=== PATIENT | female | born 1965 | race Caucasian/White ===

== ENCOUNTER 2023-02-07 16:56 | Inpatient (IN) | payer SELFPAY ==
[~2023-02-07] VITALS: Ht 170.2 cm; Wt 112.4 kg
[2023-02-07] VITALS (79 sets, daily range): BP systolic 129–227; BP diastolic 71–152
[~2023-02-07 16:56] MED LIST: ALBUTEROL0.5 % IN; ALBUTEROL2.5 MG/3 M IN; AMOXIL500 MG OR; BACTRIM DS1 TAB PO; BAYER ASA325 MG OR; CEPHALEXIN500 MG OR; CIPRO500 MG OR; CIPROFLOXACN500 MG PO; DENIES CURRENT MEDS; FLEXERIL OR; FLEXERIL PO; KEFLEX500 MG PO; LISINOP/HCTZ1 TA1 OR; LORTAB 1010 MG PO; LORTAB 5 OR; LORTAB 5/3255 MG PO; LORTAB 7.57.5 MG PO; LORTAB5 PO; MEGACE40 MG OR; NAPROSYN500 MG OR; PERCOCET 5/325M1 TAB OR; PERCOCET1 TA2 PO; PROVENTIL INH17 GM IN; ULTRAM50 M1 PO; ULTRAM50 MG OR; [UNRECOGNIZED DRUG - REMARK]
--- NOTE | 2023-02-07 17:00 | NUR ---
PT TO ROOM VIA WC. DAUGHTER AT BEDSIDE. COLD SYMPTOMS FOR ONE WEEK, FAMILY IN HOME SICK. SOB WORSE IN THE LAST 2 DAYS.
--- NOTE | 2023-02-07 17:30 | NUR ---
PT HAS 4TH I/V SITE (L) HAND, 22G, SITE FLUSHES AND HAS (+) BLOOD RETURN.
--- NOTE | 2023-02-07 17:30 | NUR ---
PROVIDER AT BEDSIDE, NITRO DRIP ORDERED
[2023-02-07 17:45] LABS: BASO% 0.6 % (0-3); HEMOGLOBIN 15.7 g/dl (12.0-16.0); IMMATURE GRANULOCYTES 0.2 % (0.0-5.0); LYMPH% 17.4 % (15-41); MEAN CORPUSCULAR HGB 30.9 pG CALC (26.0-32.0); MEAN CORPUSCULAR HGB CONC 31.6 g/dL CAL (32.0-36.0); MONO% 5.5 % (2-13); NEUT# 7.97 thou/uL (2.00-7.15); NEUT% 74.3 % (42-76); RED BLOOD COUNT 5.08 mill/uL (4.20-5.60); RED CELL DISTRI WIDTH 15.1 % (11.5-15.5)
[2023-02-07 17:46] LABS: HEMATOCRIT 49.7 % (37.0-47.0); MEAN CELL VOLUME 97.8 fL CALC (80.0-100.0)
[2023-02-07 17:57] LABS: ALKALINE PHOSPHATASE 84 u/l (38-126); BUN 19 mg/dL (7-17); BUN/CREATININE RATIO 18 (12-20 (CALC)); CHLORIDE 98 mmol/l (95-108); GFR FOR AFR.AMER. > 60 ML/MIN (>=60 (CALC)); GFR OTHER RACES 58 ML/MIN (>=60 (CALC)); POTASSIUM 4.4 mmol/l (3.5-5.1); SGOT/AST 53 u/l (14-36); SODIUM 140 mmol/l (137-146)
[2023-02-07 18:00] LABS: ANION GAP 11 (6-22 (CALC)); BILIRUBIN, TOTAL 1.4 mg/dL (0.02-1.3); CARBON DIOXIDE 35 mmol/l (22-30)
--- NOTE | 2023-02-07 18:19 | NUR ---
PT IN BED, PT REPORTING MILD HEADACHE 2/10, PT REPORTS THAT HER CHEST PAIN IS GONE
--- NOTE | 2023-02-07 18:27 | NUR ---
PROVIDER AT BEDSIDE MADE AWARE THAT PT IS COMPLAINING OF MILD HEADACHE
--- NOTE | 2023-02-07 18:29 | NUR ---
PT VOIDED 350 ML
--- NOTE | 2023-02-07 18:38 | NUR ---
PT MED REC COMPLETED, PER PT SHE TAKES NO MEDICATIONS AT HOME
--- NOTE | 2023-02-07 18:45 | NUR ---
PT VOIDED 450ML
--- NOTE | 2023-02-07 18:57 | NUR ---
MD REASSESSED PT, PT DENIES ANY NEEDS AT THIS TIME
--- NOTE | 2023-02-07 19:02 | NUR ---
CALLED ICU GAVE REPORT TO CERTIFIED BENCH JEWELER TECHNICIAN
--- NOTE | 2023-02-07 19:10 | NUR ---
RECIEVED REPORT FROM LEO DEUTSCH. PATIENT ON BIPAP, O2 AT 92%, RR 30, REPORT CALLED TO LINE PATROLMAN BY LEO IGLESIAS. PATIENT UPDATED ON CONTINUOUS PLAN OF CARE, PATIENT VOICES SLIGHT RELIEF, VOICES NO FURTHER QUESTIONS OR CONCERNS, WILL CONTINUE TO MONITOR, NITRO DRIP RUNNING AT 125MCG/MIN, B/P 152/90, HR 83.
--- NOTE | 2023-02-07 20:05 | NUR ---
PATIENT READIED FOR TRANSPORT TO FLOOR, ON MONITOR AND BIPAP WITH RESPIRATORY ASSIST.
--- NOTE | 2023-02-07 20:10 | NUR ---
PATIENT ARRIVED TO UNIT VIA STRETCHER. SHE WAS ACCOMPANIED BY 2 ER NURSES AND RESPIRATORY THERAPIST. PATIENT IS NOTED ON BIPAP AND NITRO DRIP RUNNING AT [facility] [place]. PATIENT TRANSFERRED HERSELF TO BED WITH STANDBY ASSIST. ASSESSMENT COMPLETED. SHE IS ALERT AND ORIENTED X3. LUNGS COARSE WITH WHEEZES THROUGHOUT. BOWEL SOUNDS ACTIVE IN ALL FOUR QUADS. NO EDEMA NOTED. SKIN INTACT. SHE HAD A DOSE OF LASIX IN ER, CLEAR YELLOW URINE NOTED IN PUREWICK CANISTER. SHE IS SOB WITH EXERTION. NO ACUTE DISTRESS NOTED AT THIS TIME. BED LOCKED, IN LOW POSITION. CALL LIGHT WITHIN REACH. WILL CONTINUE TO MONITOR.
--- NOTE | 2023-02-07 21:26 | NUR ---
SPOKE WITH DR. CHARLTON. WHOM STATED HE WILL BE PUTTING IN ORDERS. HE WANTS FOR PATIENT TO REMAIN ON NITRO DRIP. AWAITING MD ORDERS AT THIS TIME.
--- NOTE | 2023-02-07 22:00 | NUR ---
PATIENT NOTED RESTING COMFORTABBLY ON BIPAP. SHE STATED SHE IS READY TO GET OFF BIPAP, BECAUSE THE MASK IS UNCOMFORTABLE. SHE WAS EDUCATED ON THE IMPORTANCE OF WEARING MASK AT THIS TIME. NITRO TITRATED DOWN NEEDED (SEE TITRATIONS). BED LOCKED IN LOW POSITION. WILL CONTINUE TO MONITOR.
[2023-02-08] VITALS (197 sets, daily range): BP systolic 112–190; BP diastolic 69–115
--- NOTE | 2023-02-08 | NUR ---
PATIENT SLEEPING ON BIPAP. NO ACUTE DISTRESS NOTED. CALL LIGHT WITHIN REACH. WILL CONTINUE TO MONITOR.
--- NOTE | 2023-02-08 02:00 | NUR ---
PATIENT RESTING COMFORTABLY ON BIPIP. NO ACUTE DISTRESS NOTED. BED LOCKED, IN LOW POSITION, CALL LIGHT WITHIN REACH.
--- NOTE | 2023-02-08 04:00 | NUR ---
PATIENT SLEEPING ON BIPAP. NO ACUTE DISTRESS NOTED. BED LOCKED, IN LOW POSITION, CALL LIGHT WITHIN REACH.
--- NOTE | 2023-02-08 06:00 | NUR ---
PATIENT SITTING UP IN BED WITH HOB ELEVATED. NO ACUTE DISTRESS NOTED. SHE IS ON O2 @ 5L AT THIS TIME.
[2023-02-08 06:04] LABS: HEMATOCRIT 48.3 % (37.0-47.0); HEMOGLOBIN 15.6 g/dl (12.0-16.0); MEAN CELL VOLUME 97.4 fL CALC (80.0-100.0); MEAN CORPUSCULAR HGB 31.5 pG CALC (26.0-32.0); MEAN CORPUSCULAR HGB CONC 32.3 g/dL CAL (32.0-36.0); RED BLOOD COUNT 4.96 mill/uL (4.20-5.60); RED CELL DISTRI WIDTH 14.8 % (11.5-15.5)
[2023-02-08 06:17] LABS: ALBUMIN 3.8 g/dL (3.2-5.0); ALKALINE PHOSPHATASE 76 u/l (38-126); ANION GAP 11 (6-22 (CALC)); BILIRUBIN, TOTAL 1.4 mg/dL (0.02-1.3); BUN 20 mg/dL (7-17); BUN/CREATININE RATIO 19 (12-20 (CALC)); CALCULATED LDLCHOLESTEROL 113 mg/dL (62-129 (CALC)); CARBON DIOXIDE 37 mmol/l (22-30); CHLORIDE 95 mmol/l (95-108); CREATININE 1.1 mg/dL (0.5-1.0); GFR FOR AFR.AMER. > 60 ML/MIN (>=60 (CALC)); GFR OTHER RACES 52 ML/MIN (>=60 (CALC)); HDL CHOLESTEROL 32 mg/dL (39.0-59.0); POTASSIUM 4.5 mmol/l (3.5-5.1); SGOT/AST 45 u/l (14-36); SODIUM 139 mmol/l (137-146); TOTAL CHOLESTEROL 160 mg/dl (0-199); TOTAL PROTEIN 7.1 g/dL (6.3-8.2); TOTAL TRIGLYCERIDES 76 mg/dl (0-149); VLDL CHOLESTROL 15 mg/dl (2-49 (CALC))
--- NOTE | 2023-02-08 07:00 | NUR ---
BEDSIDE REPORT RECEIVED FROM LEO PORRAS. PT RESTING IN BED WITH EYES CLOSED. ALL SAFETY MEASURES IN PLACE. PT REFUSING BIPAP UNTIL SHE EATS. PT EDUCATED ON NECESSITY OF OXYGENATION AND AGREED TO WEAR BIPAP UNTIL HER BREAKFAST ARRIVES. WILL CONTINUE TO MONITOR O2 SATURATION. NITRO DRIP AT 20 - BP CONTROLLED AT CURRENT RATE.
--- NOTE | 2023-02-08 10:21 | NUR ---
TITRATED NITRO BACK UP TO 20 FROM 10 MCG/HR. BP MAINTAINING 166/104.
--- NOTE | 2023-02-08 11:55 | NUR ---
NITRO GTT STOPPED AFTER GIVING PO BP MEDS PER MD ORDER. WILL RE-ASSESS IN 20 MINUTES.
--- NOTE | 2023-02-08 12:48 | NUR ---
PT FEELING TIRED AND O2 SAT DROPPING MORE OFTEN SO WE PLACED HER BACK ON THE BIPAP. PT AGREEABLE.
--- NOTE | 2023-02-08 20:00 | NUR ---
PATIENT IN BED WITH HOB ELEVATED. NO ACUTE DISTRESS NOTED. SHE IS A/OX3. VSS. SHE IS ON O2 @ 5L NC. BREATHING NOTED EVEN AND UNLABORED. LUNGS COARSE W/ WHEEZES THROUGHOUT. BOWEL SOUNDS ACTIVE. SKIN INTACT. NO EDEMA NOTED. STRONG PEDAL AND RADIAL PULSES NOTED. SHE DENIES ANY PAIN OR DISCOMFORT. BED LOCKED, IN LOW POSITION. CALL LIGHT WITHIN REACH.
--- NOTE | 2023-02-08 22:00 | NUR ---
PATIENT SLEEPING, SHE IS ON O2 VIA NC @ 5L. HER SAT NOTED IN THE MID TO LOW 90S. NO NEED FOR BIPAP NOTED AT THIS TIME. SHE DENIES ANY PAIN OR DISCOMFORT. BED LOCKED, IN LOW POSITION, CALL LIGHT WITHIN REACH.
[2023-02-09] VITALS (43 sets, daily range): BP systolic 107–165; BP diastolic 62–115
--- NOTE | 2023-02-09 | NUR ---
PATIENT SLEEPING COMFORTABLY. SHE IS STILL ON O2 VIA NC @ 5L. HER SAT IS REMAINING IN THE MID TO LOW 90S. NO ACUTE DISTRESS NOTED. WILL CONTINUE TO MONITOR.
--- NOTE | 2023-02-09 02:00 | NUR ---
PATIENT RESTING COMFORTABLY ON OXYGEN. NO ACUTE DISTRESS NOTED. WILL CONTINUE TO MONITOR.
--- NOTE | 2023-02-09 04:00 | NUR ---
PATIENT SLEEPING COMFORTABLY WITH NO ACUTE DISTRESS NOTED. SHE IS STILL ON OXYGEN. WILL CONTINUE TO MONITOR.
[2023-02-09 06:25] LABS: ALBUMIN 3.7 g/dL (3.2-5.0); CREATININE 1.3 mg/dL (0.5-1.0); POTASSIUM 4.4 mmol/l (3.5-5.1)
[2023-02-09 06:27] LABS: BILIRUBIN, TOTAL 0.8 mg/dL (0.02-1.3)
--- NOTE | 2023-02-09 06:42 | NUR ---
PATIENT SLEEPING WITH NO ACUTE DISTRESS NOTED. SHE HAS BEEN OFF BIPAP ALL NIGHT DOING WELL WITH O2 VIA NC. SHE DOES DESAT WHEN O2 IS NOT ON PROPERLY. BED LOCKED, IN LOW POSITION, CALL LIGHT WITHIN REACH.
--- NOTE | 2023-02-09 07:15 | NUR ---
pt resting in bed with eyes closed; no apparent distress noted; pt easy to arouse; assessment completed at this time; pt alert and oriented; denies pain; no n/v noted; resp even and unlabored; lungs coarse with wheezing throughout; skin color wnl; o2 per nc at 5L; screw down dry cough noted; hr reg; strong pulses; no edema noted; sr on monitor; abd soft with bs present; no bm noted per singer songwriter; purewick intact with clear yellow urine; brief noted as well; #20 to lac, rac; #22 to lh; all sites saline locked; no redness or edema noted; plan of care explained; pt with complaints of being in bed, recliner offered but refused; pt voices concerns of wanting to leave; call light within reach; will continue to monitor
--- NOTE | 2023-02-09 08:15 | NUR ---
awake in bed; offers no complaints; o2 per nc; call light within reach; will continue to monitor
--- NOTE | 2023-02-09 08:40 | NUR ---
0840- pt noted on 5L NC; converted to room air; 0845-o2 sat 85-86% within 5 minutes; pt placed back on o2 at 3L; o2 sat current 92%; will continue to monitor
--- NOTE | 2023-02-09 10:17 | NUR ---
awake in recliner; am care provided; Dr Crespo at bedside to assess pt and discuss plan of care; will continue to monitor
--- NOTE | 2023-02-09 12:10 | NUR ---
awake in recliner eating lunch; no apparent distress noted; pt offers no complaints; iv intact; sr on monitor; o2 per nc at 3L; call light within reach; will continue to monitor
--- NOTE | 2023-02-09 12:10 | NUR ---
o2 sat 84% on ra; o2 reapplied
--- NOTE | 2023-02-09 13:53 | NUR ---
Dr Crespo called per ad writer in regards to 1600 lasix order; ad writer informed MD of dosages already given today; order to reschedule for 1899. IVF discontinued at this time
--- NOTE | 2023-02-09 14:32 | NUR ---
awake in bed; no apparent distress noted; pt offers no complaints; iv intact and patent; #20 removed from rac per pt request; sr on monitor; o2 per nc; call light within reach; will continue to monitor
--- NOTE | 2023-02-09 16:00 | NUR ---
awake in bed; o2 per nc; iv intact; sr on monitor; daughter at bedside; will continue to monitor
--- NOTE | 2023-02-09 16:38 | NUR ---
o2 sat 88%; o2 titrated up to 4L nc; will continue to monitor
--- NOTE | 2023-02-09 18:12 | NUR ---
pt awake in bed; offers no complaints; no apparent distress noted; iv intact; sr on monitor; call light within reach
--- NOTE | 2023-02-09 19:00 | NUR ---
hand off report received
--- NOTE | 2023-02-09 20:00 | NUR ---
PATIENT RESTING WITH EYES CLOSED, RESPIRATIONS EVEN AND UNLABORED ON O2@4L BY NC, NO C/O PAIN OR DISCOMFORT, NO S/S OF DISTRESSS NOTED.
--- NOTE | 2023-02-09 22:00 | NUR ---
PATIENT RESTING WITH EYES CLOSED, RESPIRATIONS EVEN AND UNLABORED ON O2@4L BY NC, NO C/O PAIN OR DISCOMFORT, NO S/S OF DISTRESS NOTED.
[2023-02-10] VITALS (16 sets, daily range): BP systolic 120–165; BP diastolic 63–110
--- NOTE | 2023-02-10 00:09 | NUR ---
PATIENT RESTING QUIETLY WITH EYES CLOSED, LIGHTS OFF FOR COMFORT, RESPIRATIONS EVEN AND UNLABORED ON O2@4L BY NC, NO C/O PAIN OR DISCOMFORT, NO S/S OF DISTRESS NOTED.
--- NOTE | 2023-02-10 02:00 | NUR ---
patient resting with eyes closed all vitals wnl
--- NOTE | 2023-02-10 04:00 | NUR ---
REQUESTED SEVERAL TIMES FOR PATIENT TO PROVIDE URINE SAMPLE, PATIENT AMBULATES TO THE BATHROOM INDEPENDENTLY, NO C/O PAIN OR DISCOMFORT, NO S/S OF DISTRES SNOTED, RESPIRATIONS EVEN AND UNLABORED ON O2@4L BY NC.
[2023-02-10 07:16] LABS: ALBUMIN 3.6 g/dL (3.2-5.0); ALKALINE PHOSPHATASE 81 u/l (38-126); ANION GAP 12 (6-22 (CALC)); BILIRUBIN, TOTAL 0.6 mg/dL (0.02-1.3); BUN 38 mg/dL (7-17); BUN/CREATININE RATIO 34 (12-20 (CALC)); CARBON DIOXIDE 38 mmol/l (22-30); CHLORIDE 92 mmol/l (95-108); CREATININE 1.1 mg/dL (0.5-1.0); GFR FOR AFR.AMER. > 60 ML/MIN (>=60 (CALC)); GFR OTHER RACES 52 ML/MIN (>=60 (CALC)); POTASSIUM 4.4 mmol/l (3.5-5.1); SGOT/AST 35 u/l (14-36); SODIUM 138 mmol/l (137-146); TOTAL PROTEIN 6.4 g/dL (6.3-8.2)
--- NOTE | 2023-02-10 07:20 | NUR ---
pt awake in bed; voices "I'm going home today"; no apparent distress noted; assessment completed at this time; pt alert and oriented; denies pain; no n/v noted; resp even and unlabored; lungs clear with wheezing; skin color wnl; o2 per nc at 3L; o2 sat 94%; dry nonprofit director cough noted; hr reg; strong pulses; no edema noted; sr on monitor; abd soft with bs present; no bm noted per scientific technical writer; bsc; #22 lh, #20 lac saline locked; no redness or edema noted at site; plan of care/ am meds explained; call light within reach; will continue to monitor
--- NOTE | 2023-02-10 08:00 | NUR ---
awake in bed; no apparent distress noted; o2 per nc; call light within reach; will continue to monitor
--- NOTE | 2023-02-10 09:40 | NUR ---
converted to RA at this time; sr on monitor; will continue to monitor
--- NOTE | 2023-02-10 10:04 | NUR ---
pt awake in bed; o2 sat 86% on RA; Dr Crespo present at bedside to assess pt and discuss plan of care; pt requesting to go home; walk study to be done and reported to MD per his request; MD aware pt o2 sat 86% on RA
--- NOTE | 2023-02-10 10:15 | NUR ---
director underwriter sales spoke with MD in regards to no further testing needed for o2 qualification being o2 sat sustained mid 80s, currently 86% on ra; ELISSA Nicholson at bedside to explained o2 cost; pt requesting to leave
--- NOTE | 2023-02-10 10:52 | NUR ---
pt requesting discharge; patient has been educated on need for oxygen at home and continued treatment for today per this typewriter mechanic and Dr Crespo; pt declines; AMA explained in great deatil including risk of decompensation and/or ; pt educated on low oxygen saturation without oxygen; pt is alert and oriented x4; pt ambulatory within room without resp distress; AMA signed and witnessed per Niranjan Glass RN; typewriter mechanic offfered to call family, pt refused and has already called daughter Tamy; patient has been informed to return to hospital immed for any resp distress, shortness of breath, woresening of condition; pt refusing to allow re-assessment of vital signs stating "I'm leaving";
--- NOTE | 2023-02-10 10:58 | NUR ---
Patient decides to leave AMA. Multiple attempts made to ecourage patient to remain here for continued treatment. Explained to patient all risks of leaving against medical advice including . Pt verbalized understanding of all risks. Pt also encouraged to return to [facility] at any time, especially if symptoms continue or become worse. Pt verbalized understanding.
== END 2023-02-10 10:58 | disposition left against medical advice (07) | DRG 193 ==
LOC: ED 16:56 → ED-I 18:08 → ED 18:08 → ICU 18:22
PROVIDERS: Family Medicine; ADMIT Student in an Organized Health Care Education/Training Program; ATTEND Student in an Organized Health Care Education/Training Program
PROC: 5A09357 Assistance with Respiratory Ventilation, Less than 24 Consecutive Hours, Continuous Positive Airway Pressure (ICD-10-PCS; principal; 2023-02-07)
DX: J18.9 Pneumonia, unspecified organism (principal); J96.91 Respiratory failure, unspecified with hypoxia; J44.1 Chronic obstructive pulmonary disease with (acute) exacerbation; I16.1 Hypertensive emergency; J44.0 Chronic obstructive pulmonary disease with (acute) lower respiratory infection; I11.0 Hypertensive heart disease with heart failure; I50.9 Heart failure, unspecified; F17.210 Nicotine dependence, cigarettes, uncomplicated; E66.01 Morbid (severe) obesity due to excess calories; Z77.120 Contact with and (suspected) exposure to mold (toxic)
CPT/HCPCS: J1650